=== PATIENT | male | born 1995 | race Caucasian/White ===

== ENCOUNTER 2021-03-29 07:07 | Outpatient (CLI) | payer OTHER ==
[2021-03-29] MEDS ORDERED: Lidocaine 1% PF 5 ML VIAL ONE (08:20)
[2021-03-29] MEDS ORDERED: EPINEPHrine 1 MG/ML AMP ONE (08:20)
[2021-03-29] MEDS ORDERED: Sodium Bicarbonate 2.5 MEQ/5 ML VIAL ONE (08:21)
[2021-03-29 08:23] VITALS: BP 128/79; TEMP 97.8
== END 2021-03-29 07:08 | disposition home or self-care (01) ==
LOC: CSHRAD 07:07
PROVIDERS: ATTEND Orthopaedic Surgery
DX: M24.812 Other specific joint derangements of left shoulder, not elsewhere classified (principal); S42.292A Other displaced fracture of upper end of left humerus, initial encounter for closed fracture; M89.9 Disorder of bone, unspecified; M65.812 Other synovitis and tenosynovitis, left shoulder
CPT/HCPCS: 23350; J0171